=== PATIENT | female | born 1945 | race American Indian/Alaskan Native ===

== ENCOUNTER 2016-11-28 01:48 | Emergency (ER) | payer MEDICARE, OTHER ==
[2016-11-28 01:56] VITALS: BMI 29.8
[2016-11-28 02:11] VITALS: RESP 18; TEMP 98; O2SAT 99
--- NOTE | 2016-11-28 02:16 | ED PDOC ---
Arrival/HPI - General Chief Complaint: Finger,Hand,&Wrist Time Seen by Provider: 11/28/16 02:16 Historian: Patient - History of Present Illness Narrative History of Present Illness (Text): 11/28/16 02:16 Stephanie Metz is a 71 year old female, whose past medical history includes hypertension and Gout, who presents to the Emergency department complaining of right wrist pain. Patient states she has been experiencing right wrist pain with occasional swelling to the area for the past week. Patient states she was seen by her PMD for similar complaints and had XR performed on , which were negative. Patient states since yesterday right wrist pain radiates up to her elbow. Patient states she has been taking Tylenol throughout the day with no relief. Patient denies any fever, chest pain, nausea, vomiting, diarrhea, back pain, neck pain, headache, dizziness, or any other complaints. PMD: Dr. Sin Time/Duration: 1 week Symptom Onset: Gradual Symptom Course: Unchanged Activities at Onset: Rest, Light Context: Home Past Medical History - Provider Review Nursing Documentation Reviewed: Yes - Tetanus Immunization Tetanus Immunization: Unknown - Cardiac Hx Hypertension: Yes - Pulmonary Hx Respiratory Disorders: No - Neurological HX Cerebrovascular Accident: Yes (2014 no deficit) - HEENT Hx HEENT Disorder: No - Renal Hx Renal Disorder: No - Endocrine/Metabolic Other/Comment: gout - Hematological/Oncological Hx Blood Disorders: No - Integumentary Hx Dermatological Disorder: No - Musculoskeletal/Rheumatological Hx Gout: Yes - Gastrointestinal Hx Gastrointestinal Disorders: No - Genitourinary/Gynecological Hx Genitourinary Disorders: No - Psychiatric Hx Psychophysiologic Disorder: No Hx Anxiety: Yes Hx Depression: No Hx Emotional Abuse: No Hx Physical Abuse: No Hx Substance Use: No - Surgical History Hx Hysterectomy: Yes (radical) Other/Comment: endometrial cancer - Suicidal Assessment Feels Threatened In Home Enviroment: No Family/Social History - Physician Review Nursing Documentation Reviewed: Yes Family/Social History: No Known Family HX Smoking Status: Never Smoked Hx Alcohol Use: Yes Frequency of alcohol use: Socially Hx Substance Use: No Hx Substance Use Treatment: No Allergies/Home Meds Allergies/Adverse Reactions: Allergies iodine Allergy (Verified 11/28/16 02:12) RASH shellfish derived Allergy (Verified 11/28/16 02:12) RASH Home Medications: Home Meds Medication Instructions Recorded Confirmed Atorvastatin Calcium [Lipitor] 20 mg PO DAILY 01/11/13 11/28/16 amLODIPine [Norvasc] 10 mg PO DAILY 08/04/16 11/28/16 Alprazolam [Xanax] 0.5 mg PO BID 11/28/16 11/28/16 Valsartan/Hydrochlorothiazide 1 tab PO DAILY 11/28/16 11/28/16 [Diovan Hct 160-25 mg Tablet] Review of Systems - Physician Review All systems were reviewed & negative as marked: Yes - Review of Systems Constitutional: Normal. absent: Fevers Eyes: Normal ENT: Normal Respiratory: Normal. absent: SOB, Cough Cardiovascular: Normal. absent: Chest Pain, Other Gastrointestinal: Normal. absent: Diarrhea, Nausea, Vomiting Genitourinary Female: Normal. absent: Dysuria, Frequency, Hematuria, Urine Output Changes Musculoskeletal: Arthralgias (+right wrist pain). absent: Back Pain, Neck Pain Skin: Normal. absent: Rash Neurological: Normal. absent: Headache, Dizziness Endocrine: Normal Hemo/Lymphatic: Normal Psychiatric: Normal Physical Exam Vital Signs Reviewed: Yes Vital Signs Temp Pulse Resp BP Pulse Ox 11/28/16 03:25 71 18 146/74 99 11/28/16 02:01 98.0 F 62 18 145/77 99 Temperature: Afebrile Blood Pressure: Normal Pulse: Regular Respiratory Rate: Normal Appearance: Positive for: Well-Appearing, Non-Toxic, Comfortable Pain Distress: None Mental Status: Positive for: Alert and Oriented X 3 - Systems Exam Head: Present: Atraumatic, Normocephalic Pupils: Present: PERRL Extroacular Muscles: Present: EOMI Conjunctiva: Present: Normal Mouth: Present: Moist Mucous Membranes Upper Extremity: Present: Normal ROM, NORMAL PULSES, Tenderness (Tenderness to right wrist), Neurovascularly Intact, Capillary Refill < 2s. No: Cyanosis, Edema, Swelling, Erythema, Temperature Abnormalties, Deformity Lower Extremity: Present: Normal Inspection. No: Edema Neurological: Present: GCS=15, CN II-XII Intact, Speech Normal Skin: Present: Warm, Dry, Normal Color. No: Rashes Psychiatric: Present: Alert, Oriented x 3, Normal Insight, Normal Concentration Medical Decision Making ED Course and Treatment: 11/28/16 02:16 Impression: 71 year old female complaining of right wrist pain. Differential Diagnosis include but are not limited to: Gout Plan: -- Morphine -- Reassess and disposition Progress Notes: 11/28/16 03:13 On re-evaluation, the patient feels better and is in no acute distress. I have discussed the results and plan with the patient, who expresses understanding. Patient in agreement with plan to discharged home. Patient is stable for discharge. Patient was instructed to follow up with physician/clinic in 1-2 days or return if symptoms worsen or new concerning symptoms arise. Re-evaluation Time: 03:14 Reassessment Condition: Re-examined, Improved - Medication Orders Current Medication Orders: Discontinued Medications Morphine Sulfate (Morphine) 2 mg SC STAT STA Stop: 11/28/16 02:23 Last Admin: 11/28/16 02:46 Dose: 2 mg - Scribe Statement The provider has reviewed the documentation as recorded by the Scribe Dana Webb All medical record entries made by the Scribe were at my direction and personally dictated by me. I have reviewed the chart and agree that the record accurately reflects my personal performance of the history, physical exam, medical decision making, and the department course for this patient. I have also personally directed, reviewed, and agree with the discharge instructions and disposition. Disposition/Present on Arrival - Present on Arrival Any Indicators Present on Arrival: No History of DVT/PE: No History of Uncontrolled Diabetes: No Urinary Catheter: No History of Decub. Ulcer: No History Surgical Site Infection Following: None - Disposition Have Diagnosis and Disposition been Completed?: Yes Diagnosis: Gout Disposition: HOME/ ROUTINE Disposition Time: 03:14 Condition: GOOD Discharge Instructions (ExitCare): Gout (ED) Prescriptions: Tramadol HCl [Ultram] 50 mg PO QID #12 tab Referrals: Vikas Sin MD [Primary Care Provider] - Follow up with primary
[2016-11-28] MEDS ORDERED: Morphine 2 mg/ml ISec SC STA (02:22)
[2016-11-28 03:26] VITALS: BP 146/74; PULSE 71
== END 2016-11-28 03:25 | disposition home or self-care (01) ==
LOC: ED 01:48
DX: M10.9 Gout, unspecified (principal); I10 Essential (primary) hypertension
CPT/HCPCS: 96372; 99283; J2270

== ENCOUNTER 2016-12-22 15:36 | Emergency (ER) | payer MEDICARE, OTHER ==
[2016-12-22 15:37] VITALS: BMI 29.8
[2016-12-22 15:56] VITALS: BP 104/67; PULSE 80; RESP 18; TEMP 97.8; O2SAT 98
--- NOTE | 2016-12-22 16:01 | ED PDOC ---
Arrival/HPI - General Time Seen by Provider: 12/22/16 15:50 Historian: Patient - History of Present Illness Narrative History of Present Illness (Text): 12/22/16 16:08 71yo female with PMhx of gotu, hypertension and hyperlipdemia present with c/o bilateral knee pain x days. Notes intermittent history of same pain in the past. States pain radiates from her knees to her lower foot. States she took her gout medication. Denies trauma, chest pain, SOb, recent travel, weakness, any other complaint. Past Medical History - Provider Review Nursing Documentation Reviewed: Yes - Tetanus Immunization Tetanus Immunization: Unknown - Cardiac Hx Hypertension: Yes - Pulmonary Hx Respiratory Disorders: No - Neurological HX Cerebrovascular Accident: Yes (2014 no deficit) - HEENT Hx HEENT Disorder: No - Renal Hx Renal Disorder: No - Endocrine/Metabolic Other/Comment: gout - Hematological/Oncological Hx Blood Disorders: No - Integumentary Hx Dermatological Disorder: No - Musculoskeletal/Rheumatological Hx Gout: Yes - Gastrointestinal Hx Gastrointestinal Disorders: No - Genitourinary/Gynecological Hx Genitourinary Disorders: No - Psychiatric Hx Psychophysiologic Disorder: No Hx Anxiety: Yes Hx Depression: No Hx Emotional Abuse: No Hx Physical Abuse: No Hx Substance Use: No - Surgical History Hx Hysterectomy: Yes (radical) Other/Comment: endometrial cancer - Suicidal Assessment Feels Threatened In Home Enviroment: No Family/Social History - Physician Review Nursing Documentation Reviewed: Yes Family/Social History: Unknown Family HX Smoking Status: Never Smoked Hx Alcohol Use: Yes Hx Substance Use: No Hx Substance Use Treatment: No Allergies/Home Meds Allergies/Adverse Reactions: Allergies iodine Allergy (Verified 12/22/16 15:57) RASH shellfish derived Allergy (Verified 12/22/16 15:57) RASH Home Medications: Home Meds Medication Instructions Recorded Confirmed Atorvastatin Calcium [Lipitor] 20 mg PO DAILY 01/11/13 11/28/16 amLODIPine [Norvasc] 10 mg PO DAILY 08/04/16 11/28/16 Alprazolam [Xanax] 0.5 mg PO BID 11/28/16 11/28/16 Valsartan/Hydrochlorothiazide 1 tab PO DAILY 11/28/16 11/28/16 [Diovan Hct 160-25 mg Tablet] Review of Systems - Physician Review All systems were reviewed & negative as marked: Yes - Review of Systems Constitutional: Normal Eyes: Normal ENT: Normal Respiratory: Normal Cardiovascular: Normal Gastrointestinal: Normal Genitourinary Female: Normal Musculoskeletal: Normal Skin: Normal Neurological: Normal Endocrine: Normal Hemo/Lymphatic: Normal Psychiatric: Normal Physical Exam Vital Signs Reviewed: Yes Vital Signs Temp Pulse Resp BP Pulse Ox 12/22/16 15:40 97.8 F 80 18 104/67 98 Temperature: Afebrile Blood Pressure: Normal Pulse: Regular Respiratory Rate: Normal Appearance: Positive for: Well-Appearing, Non-Toxic, Comfortable Pain Distress: None Mental Status: Positive for: Alert and Oriented X 3 - Systems Exam Head: Present: Atraumatic, Normocephalic Pupils: Present: PERRL Extroacular Muscles: Present: EOMI Conjunctiva: Present: Normal Mouth: Present: Moist Mucous Membranes Neck: Present: Normal Range of Motion Respiratory/Chest: Present: Clear to Auscultation, Good Air Exchange. No: Respiratory Distress, Accessory Muscle Use Cardiovascular: Present: Regular Rate and Rhythm, Normal S1, S2. No: Murmurs Abdomen: Present: Normal Bowel Sounds. No: Tenderness, Distention, Peritoneal Signs Back: Present: Normal Inspection Upper Extremity: Present: Normal Inspection. No: Cyanosis, Edema Lower Extremity: Present: CALF TENDERNESS (Right calf), NORMAL PULSES, Normal ROM, Tenderness (B/L knee), Neurovascularly Intact. No: Edema, Cyanosis, Swelling, Erythema, Deformity, Temperature Abnormalties Neurological: Present: GCS=15, CN II-XII Intact, Speech Normal Skin: Present: Warm, Dry, Normal Color. No: Rashes Psychiatric: Present: Alert, Oriented x 3, Normal Insight, Normal Concentration Medical Decision Making ED Course and Treatment: 12/22/16 17:11 Pt in ED for stated history. B/L knee xray - DJD. No acute finding PEr US verbal result from the tech - Doppler was negative for DVT b/l Result was DW the pt. she was referred to her PMD/Orthopedist. Isidro wrap applied. Advised TRT ED for any new or worsening symptoms - RAD Interpretation Radiology Orders: 12/22/16 16:01 KNEE W PATELLA BILAT 3 VIEW [RAD] Stat DUPLEX LOWER EXTRM VEIN BILAT [US] Stat - Medication Orders Current Medication Orders: Discontinued Medications Ketorolac Tromethamine (Toradol) 60 mg IM STAT STA Stop: 12/22/16 17:10 Disposition/Present on Arrival - Present on Arrival Any Indicators Present on Arrival: No History of DVT/PE: No History of Uncontrolled Diabetes: No Urinary Catheter: No History Surgical Site Infection Following: None - Disposition Have Diagnosis and Disposition been Completed?: Yes Diagnosis: Knee pain, bilateral Disposition: HOME/ ROUTINE Disposition Time: 17:15 Patient Plan: Discharge Condition: STABLE Discharge Instructions (ExitCare): Knee Pain (ED) Additional Instructions: Follow up with your Doctor/Orthopedist Return to ED for any new or worsening symptoms Prescriptions: traMADol [Ultram] 50 mg PO TID #12 tab Referrals: Vikas Sin MD [Primary Care Provider] - Follow up with primary Julito Petersen III, MD [Medical Doctor] - Follow up with primary
--- NOTE | 2016-12-22 18:48 | US ---
HISTORY: Leg pain and swelling. Evaluate for DVT PHYSICIAN(S): Avery De Leon MD. TECHNIQUE: Duplex sonography and color-flow Doppler with graded compression were used to evaluate the deep venous systems of both lower extremities. FINDINGS: The visualized deep venous systems of both lower extremities are sonographically normal and compressible. Normal wave forms and augmentation are seen. There is no sonographic evidence for deep venous thrombosis in the visualized segments of both lower extremities. IMPRESSION: No sonographic evidence for deep venous thrombosis in the visualized segments of both lower extremities.
--- NOTE | 2016-12-23 10:20 | RAD ---
PROCEDURE: Bilateral Knee Radiographs. HISTORY: b/l knee pain COMPARISON: None. FINDINGS: BONES: Right Knee: Normal. No fracture. Left Knee: Normal. No fracture. JOINTS: Right Knee: Very early tricompartmental osteoarthritis. Marginal osteophytes. Minimal joint space narrowing in the medial and lateral compartments. No articular erosion. Left knee: Very early tricompartmental osteoarthritis. Marginal osteophytes. Minimal joint space narrowing in the medial and lateral compartments. No articular erosion. SOFT TISSUES: Right Knee: Normal. Left Knee: Normal. JOINT EFFUSION: Right Knee: None. Left Knee: None. OTHER FINDINGS: None. 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
== END 2016-12-22 17:36 | disposition home or self-care (01) ==
LOC: ED 15:36
DX: M25.562 Pain in left knee (principal); M25.561 Pain in right knee
CPT/HCPCS: 73562; 93970; 96372; 99283; J1885

== ENCOUNTER 2017-09-12 20:24 | Observation (INO) | payer MEDICARE, OTHER ==
[2017-09-12 20:56] LABS: BASO # 0.01 K/mm3 (0.0-2.0); BASO % 0.1 % (0.0-3.0); EOS # 0.2 (0.0-0.7); EOS % 2.4 % (1.5-5.0); GRAN # 4.19 (1.4-6.5); GRAN % 55.9 % (50.0-68.0); HEMOGLOBIN 10.1 g/dL (12.0-16.0); LYMPH # 2.6 (1.2-3.4); LYMPH % 34.3 % (22.0-35.0); MEAN CORPUSCULAR HEMOGLOBIN 28.2 pg (25.0-35.0); MEAN CORPUSCULAR HGB CONC 32.1 g/dl (31.0-37.0); MEAN PLATELET VOLUME 12.1 fl (7.0-11.0); MONO # 0.6 (0.1-0.6); MONO % 7.3 % (1.0-6.0); RBC 3.58 10^6/uL (3.5-6.1); RED CELL DISTRIBUTION WIDTH 16.3 % (11.5-14.5); WHITE BLOOD COUNT 7.5 10^3/ul (4.5-11.0)
[2017-09-12 21:13] LABS: ALB/GLOB RATIO 1.3 (1.1-1.8); ALBUMIN 4.1 g/dL (3.0-4.8); ALT/SGPT 35 U/L (7-56); AST/SGOT 30 U/L (14-36); BLOOD UREA NITROGEN 44 mg/dL (7-21); CALCIUM 10.9 mg/dL (8.4-10.5); GFR AFRICAN-AMERICAN 31; GFR NON-AFRICAN AMERICAN 26
[2017-09-12 21:21] LABS: TROPONIN I < 0.01 ng/mL
--- NOTE | 2017-09-12 22:33 | ED PDOC ---
Arrival/HPI - General Chief Complaint: Chest Pain Time Seen by Provider: 09/12/17 20:28 Historian: Patient - History of Present Illness Narrative History of Present Illness (Text): 09/12/17 22:30 Stephanie Metz is a 72 year old female, whose past medical history includes GOTU, hypertension, and hyperlipidemia, presents to the emergency department complaining of chest pain radiating to the left arm for a couple days. Patient also notes numbness in the left hand. Patient states she want to get checked out. Patient denies any fever, chills, shortness of breath, nausea, vomiting, diarrhea, back pain, neck pain, headache, dizziness or any other complaints. Time/Duration: < week Symptom Onset: Gradual Symptom Course: Unchanged Activities at Onset: Light Context: Home Past Medical History - Provider Review Nursing Documentation Reviewed: Yes - Infectious Disease Hx of Infectious Diseases: None - Tetanus Immunization Tetanus Immunization: Unknown - Cardiac Hx Cardiac Disorders: Yes Hx Hypertension: Yes - Pulmonary Hx Respiratory Disorders: No - Neurological Hx Neurological Disorder: Yes HX Cerebrovascular Accident: Yes (2014 no deficit) - HEENT Hx HEENT Disorder: No - Renal Hx Renal Disorder: Yes Other/Comment: chronic kidney disease - Endocrine/Metabolic Hx Endocrine Disorders: No - Hematological/Oncological Hx Blood Disorders: No - Integumentary Hx Dermatological Disorder: No - Musculoskeletal/Rheumatological Hx Musculoskeletal Disorders: Yes Hx Gout: Yes - Gastrointestinal Hx Gastrointestinal Disorders: Yes Hx Pancreatitis: Yes (2011) - Genitourinary/Gynecological Hx Genitourinary Disorders: Yes Other/Comment: endometrial cancer - Psychiatric Hx Psychophysiologic Disorder: Yes Hx Anxiety: Yes Hx Depression: No Hx Emotional Abuse: No Hx Physical Abuse: No Hx Substance Use: No - Surgical History Hx Hysterectomy: Yes (radical) Other/Comment: endometrial cancer - Anesthesia Hx Anesthesia: Yes Hx Anesthesia Reactions: No - Suicidal Assessment Feels Threatened In Home Enviroment: No Family/Social History - Physician Review Nursing Documentation Reviewed: Yes Family/Social History: Unknown Family HX Smoking Status: Never Smoked Hx Alcohol Use: Yes Frequency of alcohol use: Socially Hx Substance Use: No Hx Substance Use Treatment: No Allergies/Home Meds Allergies/Adverse Reactions: Allergies iodine Allergy (Verified 12/22/16 15:57) RASH shellfish derived Allergy (Verified 12/22/16 15:57) RASH Home Medications: Home Meds Medication Instructions Recorded Confirmed Atorvastatin Calcium [Lipitor] 20 mg PO DAILY 01/11/13 09/12/17 amLODIPine [Norvasc] 10 mg PO DAILY 08/04/16 09/12/17 Alprazolam [Xanax] 0.5 mg PO BID 11/28/16 09/12/17 Valsartan/Hydrochlorothiazide 1 tab PO DAILY 11/28/16 09/12/17 [Diovan Hct 160-25 mg Tablet] Review of Systems - Physician Review All systems were reviewed & negative as marked: Yes - Review of Systems Constitutional: Normal Eyes: Normal ENT: Normal Respiratory: Normal. absent: SOB, Cough Cardiovascular: Chest Pain. absent: Palpitations Gastrointestinal: Normal. absent: Abdominal Pain, Diarrhea, Nausea, Vomiting Genitourinary Female: Normal. absent: Dysuria, Frequency, Hematuria, Urine Output Changes Musculoskeletal: Other (left arm pain, numbness to left hand). absent: Back Pain, Neck Pain Skin: Normal. absent: Rash Neurological: Normal. absent: Headache, Dizziness Endocrine: Normal Hemo/Lymphatic: Normal Psychiatric: Normal Physical Exam Vital Signs Reviewed: Yes Vital Signs Temp Pulse Resp BP Pulse Ox 09/13/17 00:47 98.6 F 85 20 144/96 H 09/13/17 00:00 84 20 147/80 98 09/12/17 22:55 79 18 133/76 97 09/12/17 20:28 98.6 F 88 17 136/74 95 Temperature: Afebrile Blood Pressure: Normal Pulse: Regular Respiratory Rate: Normal Appearance: Positive for: Well-Appearing, Non-Toxic, Comfortable Pain Distress: None Mental Status: Positive for: Alert and Oriented X 3 - Systems Exam Head: Present: Atraumatic, Normocephalic Pupils: Present: PERRL Extroacular Muscles: Present: EOMI Conjunctiva: Present: Normal Mouth: Present: Moist Mucous Membranes Neck: Present: Normal Range of Motion Respiratory/Chest: Present: Clear to Auscultation, Good Air Exchange. No: Respiratory Distress, Accessory Muscle Use Cardiovascular: Present: Regular Rate and Rhythm, Normal S1, S2. No: Murmurs Abdomen: Present: Normal Bowel Sounds. No: Tenderness, Distention, Peritoneal Signs Back: Present: Normal Inspection Upper Extremity: Present: Normal Inspection. No: Cyanosis, Edema Lower Extremity: Present: Normal Inspection. No: Edema Neurological: Present: GCS=15, CN II-XII Intact, Speech Normal Skin: Present: Warm, Dry, Normal Color. No: Rashes Psychiatric: Present: Alert, Oriented x 3, Normal Insight, Normal Concentration Medical Decision Making ED Course and Treatment: 09/12/17 22:33 Impression: 72 year old female presents to the emergency department complaining of chest pain radiating to the left arm with numbness to the left hand. Plan: -- EKG -- Chest X-ray -- Labs -- Urinalysis -- Magnesium -- Cardiac Enzymes -- Lipid Panel -- Ecotrin -- Lipitor -- Norvasc -- Protonix -- Toprol -- Tylenol -- Ultrem -- Zestril -- Zofran -- Reassess and disposition Progress Notes: case d/w dr laguna will tele obs for cp 09/13/17 03:35 - Lab Interpretations Lab Results: 09/12/17 20:40 09/12/17 20:40 Lab Results 09/12/17 20:40: Sodium 140, Potassium 4.1, Chloride 103, Carbon Dioxide 24, Anion Gap 17, BUN 44 H, Creatinine 1.9 H, Est GFR ( Amer) 31, Est GFR ( Non-Af Amer) 26, Random Glucose 100, Calcium 10.9 H, Magnesium 2.3 H, Total Bilirubin 0.3, AST 30, ALT 35, Alkaline Phosphatase 66, Lactate Dehydrogenase 378, Total Creatine Kinase 44, Troponin I < 0.01, Total Protein 7.3, Albumin 4.1 , Globulin 3.2, Albumin/Globulin Ratio 1.3 09/12/17 20:40: WBC 7.5, RBC 3.58, Hgb 10.1 L, Hct 31.5 L, MCV 88.0, MCH 28.2, MCHC 32.1, RDW 16.3 H, Plt Count 230, MPV 12.1 H, Gran % 55.9, Lymph % (Auto) 34.3, [place] % (Auto) 7.3 H, Eos % (Auto) 2.4, Baso % (Auto) 0.1, Gran # 4.19, Lymph # (Auto) 2.6, [place] # (Auto) 0.6, Eos # (Auto) 0.2, Baso # (Auto) 0.01 - RAD Interpretation Radiology Orders: 09/12/17 20:46 CHEST PORTABLE [RAD] Stat - Medication Orders Current Medication Orders: Acetaminophen (Tylenol 325mg Tab) 650 mg PO Q6H PRN PRN Reason: Fever >100.4 F Alprazolam (Xanax) 0.5 mg PO BID LUIS A PRN Reason: Protocol Amlodipine Besylate (Norvasc) 10 mg PO DAILY LUIS A Aspirin (Ecotrin) 81 mg PO DAILY LUIS A Atorvastatin Calcium (Lipitor) 20 mg PO DIN LUIS A Lisinopril (Zestril) 10 mg PO DAILY LUIS A Metoprolol Succinate (Toprol Xl) 25 mg PO BRK LUIS A Ondansetron HCl (Zofran Inj) 4 mg IVP Q6H PRN PRN Reason: Nausea/Vomiting Pantoprazole Sodium (Protonix Ec Tab) 40 mg PO 0630 LUIS A Tramadol HCl (Ultram) 50 mg PO TID LUIS A - Scribe Statement The provider has reviewed the documentation as recorded by the Scribe Documented by [Scribe~Name] acting as a scribe for Ady King MD. Disposition/Present on Arrival - Present on Arrival Any Indicators Present on Arrival: No History of DVT/PE: No History of Uncontrolled Diabetes: No Urinary Catheter: No History of Decub. Ulcer: No History Surgical Site Infection Following: None - Disposition Have Diagnosis and Disposition been Completed?: Yes Diagnosis: Chest pain Disposition: HOSPITALIZED Disposition Time: 22:00 Condition: GOOD
[2017-09-13 01:35] LABS: HDL CHOLESTEROL 55 mg/dL (29-60)
[2017-09-13 01:46] LABS: LDL CHOLESTEROL 68 mg/dL (0-129)
[2017-09-13 01:47] LABS: TROPONIN I < 0.01 ng/mL
[2017-09-13 02:05] VITALS: BMI 31.7
[2017-09-13] MEDS ORDERED: Pantoprazole 40 mg EC Tab PO SCH (06:30)
[2017-09-13 06:50] LABS: ALB/GLOB RATIO 1.2 (1.1-1.8); ALBUMIN 3.8 g/dL (3.0-4.8); CALCIUM 10.8 mg/dL (8.4-10.5)
[2017-09-13 07:02] LABS: FREE T4 0.91 ng/dL (0.78-2.19)
--- NOTE | 2017-09-13 07:20 | HP ---
HISTORY OF PRESENT ILLNESS: Patient is a 72-year-old female, who came to emergency room because of left-sided chest pain radiating to the left arm, has been going on for a few days, but got worse today, complaining of numbness in the left lower arm and the hand. There is no history of fever or chills. No nausea, vomiting or diarrhea. No cough, no congestion, no shortness of breath. No hemoptysis, no hematemesis. PAST MEDICAL HISTORY: Significant for: 1. Hypertension. 2. Hyperlipidemia. 3. History of gout. 4. Pancreatitis. 5. History of anxiety disorder. PAST SURGICAL HISTORY: Significant for hysterectomy and endometrial cancer. ALLERGIES: SHE IS ALLERGIC TO IODINE AND SHELLFISH. MEDICATIONS AT HOME: She is on tramadol 50 mg three times a day, amlodipine 10 mg daily, valsartan 160/25 daily, atorvastatin 20 mg daily, Xanax 0.5 b.i.d. SOCIAL HISTORY: Denies smoking and drinking, only socially drinks. REVIEW OF SYSTEMS: Significant for left-sided chest pain with some generalized weakness. PHYSICAL EXAMINATION: GENERAL: She is awake, alert, oriented and communicative. VITAL SIGNS: She is afebrile, pulse , respirations 17, blood pressure 133/76. LUNGS: Bilateral good airflow. No rhonchi or crackles. HEART: S1 and S2 audible. No murmur. ABDOMEN: Soft, nontender. No rebound. No guarding. NEUROLOGICAL: The patient is awake, alert, oriented, and communicative. LABORATORY EXAM: WBC is 7.5, hemoglobin 10, hematocrit 31, platelet of 230. Chemistry: Sodium 140, potassium 4.1, chloride 103, CO2 24, BUN 44, creatinine 1.9. Blood sugar of 100, calcium 10.9, magnesium 2.3. LFTs are within normal limits. Troponin is negative. X-ray of the chest is unremarkable. ASSESSMENT: 1. Chest pain, rule out coronary artery disease. The patient had a stress test done in 08/2016. 2. Hypertension. 3. Hyperlipidemia. 4. Chronic back pain. 5. Anxiety disorder. PLAN: We will place the patient in observation and follow up cardiac enzymes. Renew her usual medications. Follow up troponin. Cardiology consult by Dr. Payne has been requested. Korin Barkley MD [facility] # [id number]
[2017-09-13] MEDS ORDERED: Metoprolol Succinate 25 mg XL Tab PO SCH (08:00)
[2017-09-13 08:17] VITALS: O2SAT 97
--- NOTE | 2017-09-13 08:39 | RAD ---
HISTORY: cp COMPARISON: 03/04/2015 FINDINGS: LUNGS: No active pulmonary disease. PLEURA: No significant pleural effusion identified, no pneumothorax apparent. CARDIOVASCULAR: Mild cardiomegaly OSSEOUS STRUCTURES: No significant abnormalities. VISUALIZED UPPER ABDOMEN: Normal. OTHER FINDINGS: None. IMPRESSION: No active disease.
[2017-09-13 09:30] LABS: AMYLASE 86 U/L (35-125); LIPASE 67 U/L (23-300)
[2017-09-13 11:56] VITALS: BP 146/87; PULSE 74; RESP 18; TEMP 98
--- NOTE | 2017-09-13 15:47 | CARD ---
APPROVED REPORT EKG Measurement Heart [id number] <Conclusion> Normal sinus rhythm Possible Left atrial enlargement NSSTW changes
--- NOTE | 2017-09-13 18:08 | CON ---
DATE: 09/13/2017 CARDIOLOGY CONSULTATION HISTORY OF PRESENT ILLNESS: The patient is a 72-year-old woman who presents with epigastric discomfort. PAST MEDICAL HISTORY: Includes hypertension and hypercholesterolemia. Because of similar symptoms in the past, the patient underwent a stress test last month. Her stress test reveals good LV function with no ischemia noted. She denies chest pain or shortness of breath today. SOCIAL HISTORY: The patient does not smoke. REVIEW OF SYSTEMS: Fourteen-point review of systems is reviewed in detail. No cardiac symptomatology is noted. PHYSICAL EXAMINATION: VITAL SIGNS: Blood pressure is 134/81, heart rate is in the 80s. NECK: Negative JVD. LUNGS: Without rales. HEART: Reveal S1, S2. EXTREMITIES: Without edema. EKG is unremarkable. LABORATORY DATA: Reveals BUN and creatinine is 42 and 1.5. The troponins are negative x2. Hemoglobin is 10.1. IMPRESSION: 1. Atypical chest pain. 2. No evidence for acute coronary syndrome. 3. Recent normal stress test. 4. Hypertension. 5. Hypercholesterolemia. 6. Anemia. Given these findings, there is no evidence for acute coronary syndrome. Her symptoms are atypical. PLAN: The patient has been given a trial of Protonix. We will discontinue telemetry. No further cardiac workup is necessary. Avery Payne MD
--- NOTE | 2017-09-14 06:37 | DS ---
HISTORY OF PRESENT ILLNESS: Patient is a 72-year-old black female who came with chest pain radiating to left shoulder and left arm. Patient was placed on observation, was given Protonix. animal husbandry professor was placed. Her overnight was unremarkable. No arrhythmia noted. PHYSICAL EXAMINATION: GENERAL: Today, patient looks comfortable. No chest pain, complaining of left shoulder pain, but she does admit carrying heavy grocery last few days in the left hand. Since then, her left shoulder has been hurting. PHYSICAL EXAMINATION: GENERAL: She is awake, alert, oriented, communicative VITAL SIGNS: She is afebrile. Pulse 74, respirations 18, blood pressure 146/67. LUNGS: Bilateral good air flow. No rhonchi or crackle. HEART: S1 and S2 audible. No murmur. ABDOMEN: Soft, obese, nontender, no rebound, no guarding. NEUROLOGIC: Patient is awake, alert, oriented, communicative, ambulatory. LABORATORY EXAMINATION: Sodium 142, potassium 4.0, chloride 105, CO2 27, BUN 42, creatinine 1.5, blood sugar 103, calcium 10.8. TSH 2.12. ASSESSMENT: 1. Non-cardiac chest pain. 2. Left shoulder sprain. 3. History of hypertension. 4. Hyperlipidemia. 5. Peptic ulcer disease. 6. Anxiety disorder. PLAN: Patient is clinically stable, cleared by inspector plug seam. She will follow up with Dr. Payne as outpatient. She is given prescription of Protonix. She will resume her medication as prior to admission that include Protonix 40 daily, 0.5 twice a day as needed, atorvastatin 20 mg daily, tramadol 50 mg three times a day, amlodipine 10 mg daily, valsartan 160/25 daily. She will follow with her PMD and Dr. Payne as outpatient. Korin Barkley MD
== END 2017-09-13 14:16 | disposition home or self-care (01) ==
LOC: ED 20:24 → ERH 23:59 → 2RNO 09-13 01:31
PROVIDERS: ADMIT Internal Medicine; ATTEND Internal Medicine
DX: R07.89 Other chest pain (principal); S43.402A Unspecified sprain of left shoulder joint, initial encounter; I12.9 Hypertensive chronic kidney disease with stage 1 through stage 4 chronic kidney disease, or unspecified chronic kidney disease; E78.5 Hyperlipidemia, unspecified; K27.9 Peptic ulcer, site unspecified, unspecified as acute or chronic, without hemorrhage or perforation; F41.9 Anxiety disorder, unspecified; E78.00 Pure hypercholesterolemia, unspecified; D64.9 Anemia, unspecified; G89.29 Other chronic pain; N18.9 Chronic kidney disease, unspecified; Z79.899 Other long term (current) drug therapy; Z85.42 Personal history of malignant neoplasm of other parts of uterus; Z86.73 Personal history of transient ischemic attack (TIA), and cerebral infarction without residual deficits; Z90.710 Acquired absence of both cervix and uterus; Z87.19 Personal history of other diseases of the digestive system; Z88.8 Allergy status to other drugs, medicaments and biological substances; Z91.013 Allergy to seafood; R40.2412 Glasgow coma scale score 13-15, at arrival to emergency department; M54.9 Dorsalgia, unspecified
CPT/HCPCS: 71045; 80053; 80061; 82150; 82550; 83615; 83690; 83735; 84439; 84443; 84484; 85025; 93005; G0378

== ENCOUNTER 2018-07-03 01:17 | Inpatient (IN) | payer MEDICARE, OTHER ==
[2018-07-03] MEDS ORDERED: Morphine 2 mg/ml ISec IVP STA ×2 (01:40→04:50)
[2018-07-03] MEDS ORDERED: Sodium Chloride 0.9% 1,000 ML IV STA (01:40)
--- NOTE | 2018-07-03 01:42 | ED PDOC ---
Arrival/HPI - General Chief Complaint: Abdominal Pain Time Seen by Provider: 07/03/18 01:19 Historian: Patient - History of Present Illness Narrative History of Present Illness (Text): 07/03/18 01:39 72 year old female, whose past medical history includes Gout hypertension, pancreatitis, level III kidney disease, hx of endometrial cancer, and hyperlipidemia, presents to the emergency department complaining of progressively worsening upper abdominal pain that began this morning associated with nausea and one episode of vomiting. Patient reports she's took 3 pepto bismol and 2 ibuprofen with no relief. Patient is an occasional drinker. Patient denies any fever, chills, chest pain, shortness of breath, diarrhea, urinary symptoms, back pain, neck pain, headache, dizziness, or any other complaints. PMD: Dr. Ireland Past Medical History - Provider Review Nursing Documentation Reviewed: Yes - Infectious Disease Hx of Infectious Diseases: None - Tetanus Immunization Tetanus Immunization: Unknown - Cardiac Hx Cardiac Disorders: Yes Hx Hypertension: Yes - Pulmonary Hx Respiratory Disorders: No - Neurological Hx Neurological Disorder: Yes HX Cerebrovascular Accident: Yes (2014 no deficit) - HEENT Hx HEENT Disorder: No - Renal Hx Renal Disorder: Yes Other/Comment: chronic kidney disease - Endocrine/Metabolic Hx Endocrine Disorders: No - Hematological/Oncological Hx Blood Disorders: No - Integumentary Hx Dermatological Disorder: No - Musculoskeletal/Rheumatological Hx Musculoskeletal Disorders: Yes Hx Gout: Yes - Gastrointestinal Hx Gastrointestinal Disorders: Yes Hx Pancreatitis: Yes (2011) - Genitourinary/Gynecological Hx Genitourinary Disorders: Yes Other/Comment: endometrial cancer - Psychiatric Hx Psychophysiologic Disorder: Yes Hx Anxiety: Yes Hx Depression: No Hx Emotional Abuse: No Hx Physical Abuse: No Hx Substance Use: No - Surgical History Hx Hysterectomy: Yes (radical) Other/Comment: endometrial cancer - Anesthesia Hx Anesthesia: Yes Hx Anesthesia Reactions: No - Suicidal Assessment Feels Threatened In Home Enviroment: No Family/Social History - Physician Review Nursing Documentation Reviewed: Yes Family/Social History: No Known Family HX Smoking Status: Never Smoked Hx Alcohol Use: Yes Hx Substance Use: No Hx Substance Use Treatment: No Allergies/Home Meds Allergies/Adverse Reactions: Allergies iodine Allergy (Verified 12/22/16 15:57) RASH shellfish derived Allergy (Verified 12/22/16 15:57) RASH Home Medications: Home Meds Medication Instructions Recorded Confirmed Atorvastatin Calcium [Lipitor] 20 mg PO DAILY 01/11/13 07/03/18 amLODIPine [Norvasc] 10 mg PO DAILY 08/04/16 07/03/18 Alprazolam [Xanax] 0.5 mg PO BID 11/28/16 07/03/18 Valsartan/Hydrochlorothiazide 1 tab PO DAILY 11/28/16 07/03/18 [Diovan Hct 160-25 mg Tablet] Pantoprazole Sodium [Protonix] 40 mg PO DAILY 09/13/17 07/03/18 Allopurinol [Zyloprim] 300 mg PO DAILY 07/03/18 07/03/18 Aspirin [Aspirin Chewable] 81 mg PO DAILY 07/03/18 07/03/18 Atenolol [Tenormin] 50 mg PO DAILY 07/03/18 07/03/18 Review of Systems - Physician Review All systems were reviewed & negative as marked: Yes - Review of Systems Constitutional: absent: Fevers, Other (Chills) Respiratory: absent: SOB Gastrointestinal: Abdominal Pain, Nausea, Vomiting. absent: Diarrhea Genitourinary Female: absent: Dysuria, Frequency, Hematuria Musculoskeletal: absent: Back Pain, Neck Pain Neurological: absent: Headache, Dizziness Physical Exam Vital Signs Reviewed: Yes Appearance: Positive for: Well-Appearing, Non-Toxic, Comfortable Pain Distress: None Mental Status: Positive for: Alert and Oriented X 3 - Systems Exam Head: Present: Atraumatic, Normocephalic Pupils: Present: PERRL Extroacular Muscles: Present: EOMI Conjunctiva: Present: Normal Mouth: Present: Moist Mucous Membranes Neck: Present: Normal Range of Motion Respiratory/Chest: Present: Clear to Auscultation, Good Air Exchange. No: Respiratory Distress, Accessory Muscle Use Cardiovascular: Present: Regular Rate and Rhythm, Normal S1, S2. No: Murmurs Abdomen: Present: Tenderness (Palpable tenderness upper abdomen). No: Distention, Peritoneal Signs Back: Present: Normal Inspection Upper Extremity: Present: Normal Inspection. No: Cyanosis, Edema Lower Extremity: Present: Normal Inspection. No: Edema Neurological: Present: GCS=15, CN II-XII Intact, Speech Normal Skin: Present: Warm, Dry, Normal Color. No: Rashes Psychiatric: Present: Alert, Oriented x 3, Normal Insight, Normal Concentration Medical Decision Making ED Course and Treatment: 07/03/18 01:39 Impression: 72 year old female presents complaining of upper abdominal pain associated with nausea and one episode of vomiting that began in t he morning. Plan: -- EKG -- Labs -- Chest X-ray -- Gallbladder & Pancreas US -- Reassess and disposition Prior Visits: Notes and results from previous visits were reviewed. Progress Notes: 07/03/18 01:06 EKG shows NSR at 72 BPM with non-specific ST/T changes. Interpreted by me. 07/03/18 02:23 CXR Impression: As read by me, no acute process. EXAM: US Abdomen, Right Upper Quadrant. Electronically signed on Jul 03, 2018 4:00:52 AM EST by: Nathan Carpenter M.D. IMPRESSION: Several right renal cysts. Unremarkable right upper quadrant ultrasound otherwise. 07/03/18 04:[address] Garcia covering Dr. Barkley who is aware and agrees with the plan. Accepts patient into Dr. Barkley's service. - Lab Interpretations I have reviewed the lab results: Yes - RAD Interpretation Radiology Orders: 07/03/18 01:38 CHEST PORTABLE [RAD] Stat Dough Scaler And Mixer: ED Physician - EKG Interpretation Interpreted by ED Physician: Yes Type: 12 lead EKG - Scribe Statement The provider has reviewed the documentation as recorded by the Ettaibe Miki Lozada Provider Scribe Attestation: All medical record entries made by the Scribe were at my direction and personally dictated by me. I have reviewed the chart and agree that the record accurately reflects my personal performance of the history, physical exam, medical decision making, and the department course for this patient. I have also personally directed, reviewed, and agree with the discharge instructions and disposition. Disposition/Present on Arrival - Present on Arrival Any Indicators Present on Arrival: No History of DVT/PE: No History of Uncontrolled Diabetes: No Urinary Catheter: No History of Decub. Ulcer: No History Surgical Site Infection Following: None - Disposition Have Diagnosis and Disposition been Completed?: Yes Diagnosis: Acute pancreatitis Disposition: HOSPITALIZED Disposition Time: 04:20 Patient Plan: Admission Condition: STABLE Referrals: Doretha Ireland MD [Primary Care Provider] - Follow up with primary Forms: [employer] ([place]ien)
[2018-07-03 02:28] LABS: ALB/GLOB RATIO 1.4 (1.1-1.8); ALBUMIN 4.1 g/dL (3.0-4.8); CALCIUM 10.2 mg/dL (8.4-10.5)
[2018-07-03 02:36] LABS: MEAN CELL VOLUME 90.1 fl (80.0-105.0); MEAN CORPUSCULAR HEMOGLOBIN 28.6 pg (25.0-35.0); MEAN CORPUSCULAR HGB CONC 31.7 g/dl (31.0-37.0); MEAN PLATELET VOLUME 11.7 fl (7.0-11.0); RBC 3.85 10^6/uL (3.5-6.1); RED CELL DISTRIBUTION WIDTH 16.6 % (11.5-14.5); WHITE BLOOD COUNT 8.1 10^3/uL (4.5-11.0)
[2018-07-03] MEDS ORDERED: Dextrose 5%/0.45% NS 1,000 ML IV SCH (04:30)
[2018-07-03 05:50] VITALS: BMI 33.5
--- NOTE | 2018-07-03 07:37 | CP.PCM.CON ---
<Juliano Angel - Last Filed: 07/03/18 17:37> History of Present Illness - History of Present Illness History of Present Illness: Juliano Angel DO, PGY1. GI consult note for Dr Muna Hernandez: abdominal pain 72 y/o female with PMH of pancreatitis, HTN, HLD, CVA, gout, CKD, endometrial cancer s/o total hysterectomy with BSO admitted to [facility] for left sided abdominal pain 10/10, sharp, constant, radiates to the back, no alleviating or worsening factors. Patient states that the pain has been for the past 2 weeks but was 5/6/10 and intermittent, spontaneously resolve but yesterday was progressive with no resolution. Pain is associted with one episode of nausea, NBNB vomiting. Patient denied any diarrhea, blood per rectum, black stool, hematemesis, hemoptysis. She states that she was diagnosed of alcoholic pancreatitis in 2008 and she still drinks 2 glasses of wine daily at night for years with increased consumption during holidays. She had milder symptoms during Thanks[place] after d rinking alcohol but resolved spontaneously. Her last hospital admission admission related to pancreatitis was one year ago. She admits to taking NSAID (800 mg Ibuprofen) for her tooth ache. Patient had EGD/CSPY 3 years ago for gastris/colonic polyps surveillance respectively. Patient denied CP, SOB, palpitations, headache, dizzines, fever, chills, leg edema. ROS reviewed as above PMH: pancreatitis, GERD, HTN, HLD, gout, CKD, endometrial cancer, CVA BSH: total hysterectomy with BSO Meds: as per EMR All: iodine SH: drinks 2 glasses of wine daily, no smoking or drug use FH: brother had gastric cancer Endo: last EGD/CSPY in 2017 for gastris/colonic polyps surveillance respectively Past Patient History - Infectious Disease Hx of Infectious Diseases: None - Tetanus Immunizations Tetanus Immunization: Unknown - Past Social History Smoking Status: Never Smoked - CARDIAC Hx Hypercholesterolemia: Yes Hx Hypertension: Yes - PULMONARY Hx Respiratory Disorders: No - NEUROLOGICAL HX Cerebrovascular Accident: Yes (2015, NO DEFICITS) - HEENT Hx HEENT Problems: No - RENAL Hx Chronic Kidney Disease: Yes Other/Comment: chronic kidney disease - ENDOCRINE/METABOLIC Hx Diabetes Mellitus Type 1: Yes (BORDERLINE, DIET CONTROLLED) - HEMATOLOGICAL/ONCOLOGICAL Hx Blood Disorders: No - INTEGUMENTARY Hx Dermatological Problems: No - MUSCULOSKELETAL/RHEUMATOLOGICAL Hx Falls: No - GASTROINTESTINAL Hx Gastroesophageal Reflux: Yes Hx Liver Failure: Yes (FATTY LIVER) Hx Pancreatitis: Yes - GENITOURINARY/GYNECOLOGICAL Hx Genitourinary Disorders: Yes Other/Comment: endometrial cancer - PSYCHIATRIC Hx Anxiety: Yes Hx Substance Use: No - SURGICAL HISTORY Hx Surgeries: Yes Hx Hysterectomy: Yes - ANESTHESIA Hx Anesthesia: Yes Hx Anesthesia Reactions: No Meds Allergies/Adverse Reactions: Allergies Allergy/AdvReac Type Severity Reaction Status Date / Time iodine Allergy RASH Verified 12/22/16 15:57 shellfish derived Allergy RASH Verified 12/22/16 15:57 - Medications Medications: Current Medications Dextrose/Sodium Chloride (Dextrose 5%/0.45% Ns 1000 Ml) 1,000 mls @ 100 mls/hr IV .Q10H LUIS A Last Admin: 07/03/18 04:35 Dose: 100 mls/hr Physical Exam - Constitutional Appears: Well, No Acute Distress - Head Exam Head Exam: ATRAUMATIC, NORMAL INSPECTION, NORMOCEPHALIC - Eye Exam Eye Exam: EOMI, Normal appearance, PERRL Pupil Exam: NORMAL ACCOMODATION, PERRL - ENT Exam ENT Exam: Mucous Membranes Dry - Neck Exam Neck exam: Positive for: Normal Inspection - Respiratory Exam Respiratory Exam: Clear to Auscultation Bilateral, NORMAL BREATHING PATTERN - Cardiovascular Exam Cardiovascular Exam: REGULAR RHYTHM, +S1, +S2. absent: Gallop, Rubs - GI/Abdominal Exam GI & Abdominal Exam: Hyperactive Bowel Sounds, Normal Bowel Sounds, Soft, Tenderness. absent: Organomegaly, Pulsatile Mass, Rebound Additional comments: TTP left mid abdomen - Extremities Exam Extremities exam: Positive for: normal inspection - Back Exam Back exam: NORMAL INSPECTION - Neurological Exam Neurological exam: Alert, CN II-XII Intact, Normal Gait, Oriented x3, Reflexes Normal - Psychiatric Exam Psychiatric exam: Normal Affect, Normal Mood - Skin Skin Exam: Dry, Intact, Normal Color, Warm Results - Vital Signs Recent Vital Signs: Last Vital Signs Temp 98.2 F 07/03/18 04:50 Pulse 85 07/03/18 04:50 Resp 20 07/03/18 05:30 BP 156/72 H 07/03/18 04:50 Pulse Ox 98 07/03/18 04:50 - Labs Result Diagrams: 07/03/18 02:12 07/03/18 02:12 Labs: Laboratory Results - last 24 hr 07/03/18 07/03/18 02:12 02:12 WBC 8.1 RBC 3.85 Hgb 11.0 L Hct 34.7 L MCV 90.1 MCH 28.6 MCHC 31.7 RDW 16.6 H Plt Count 256 MPV 11.7 H Sodium 138 Potassium 5.0 Chloride 105 Carbon Dioxide 26 Anion Gap 12 BUN 48 H Creatinine 1.8 H Est GFR ( Amer) 33 Est GFR (Non-Af Amer) 28 Random Glucose 142 H Calcium 10.2 Total Bilirubin 0.6 AST 24 ALT 23 Alkaline Phosphatase 68 Total Protein 7.0 Albumin 4.1 Globulin 2.9 Albumin/Globulin Ratio 1.4 Lipase 59587 H Assessment & Plan - Assessment and Plan (Free Text) Assessment: 72 y/o female with PMH of pancreatitis, HTN, HLD, CVA, gout, CKD, endometrial cancer s/o total hysterectomy with BSO admitted to [facility] for left sided abdominal pain, nausea, vomiting. She was found to have lipase of >78672 Plan: abdominal pain: -likely due to alcoholic pancreatitis based on clinical symptoms+serology -now patient is hemodynamically stable, afebrile, in NAD -lipase 10,186 -MRCP ordered -AST/ALT/ALP wnl -advance diet to clear liquid -pancreatic enzymes 10,000 U TID -conservative management IVF, pain control -continue PPI, zofran -outpatient EGD Case reviewed and plan discussed with attending Dr Muna Angel, DO <Giulia Toro V - Last Filed: 07/03/18 23:37> Meds - Medications Medications: Current Medications Acetaminophen (Tylenol 325mg Tab) 650 mg PO Q4H PRN PRN Reason: Pain, Mild (1-3) Allopurinol (Zyloprim) 300 mg PO DAILY [facility] Last Admin: 07/03/18 10:15 Dose: 300 mg Alprazolam (Xanax) 0.5 mg PO BID PRN; Protocol PRN Reason: Anxiety Last Admin: 07/03/18 08:45 Dose: 0.5 mg Amlodipine Besylate (Norvasc) 10 mg PO DAILY [facility] Last Admin: 07/03/18 10:15 Dose: 10 mg Amylase (Pancrease 57521 U-5000 [id number] U) 10,000 unit PO [facility] Last Admin: 07/03/18 18:32 Dose: 10,000 unit Aspirin (Aspirin Chewable) 81 mg PO DAILY [facility] Last Admin: 07/03/18 10:14 Dose: 81 mg Atenolol (Tenormin) 50 mg PO DAILY [facility] Last Admin: 07/03/18 10:15 Dose: 50 mg Atorvastatin Calcium (Lipitor) 20 mg PO DIN [facility] Last Admin: 07/03/18 17:48 Dose: 20 mg Hydrochlorothiazide (Hydrodiuril) 25 mg PO DAILY [facility] Last Admin: 07/03/18 10:14 Dose: 25 mg Dextrose/Sodium Chloride (Dextrose 5%/0.45% Ns 1000 Ml) 1,000 mls @ 100 mls/hr IV .Q10H [facility] Last Admin: 07/03/18 04:35 Dose: 100 mls/hr Sodium Chloride (Sodium Chloride 0.9%) 1,000 mls @ 100 mls/hr IV .Q10H [facility] Last Admin: 07/03/18 20:51 Dose: 100 mls/hr Losartan Potassium (Cozaar) 100 mg PO DAILY [facility] Last Admin: 07/03/18 10:14 Dose: Not Given Morphine Sulfate (Morphine) 2 mg IVP Q4H PRN PRN Reason: Pain, severe (8-10) Last Admin: 07/03/18 10:51 Dose: 2 mg Ondansetron HCl (Zofran Inj) 4 mg IVP Q4H PRN PRN Reason: Nausea/Vomiting Pantoprazole Sodium (Protonix Ec Tab) 40 mg PO DAILY [facility] Last Admin: 07/03/18 10:15 Dose: 40 mg Tramadol HCl (Ultram) 50 mg PO TID PRN PRN Reason: Pain, moderate (4-7) Last Admin: 07/03/18 08:45 Dose: 50 mg Results - Vital Signs Recent Vital Signs: Last Vital Signs Temp 98.2 F 07/03/18 16:15 Pulse 55 L 07/03/18 20:00 Resp 18 07/03/18 16:15 BP 129/72 07/03/18 20:00 Pulse Ox 95 07/03/18 16:15 - Labs Result Diagrams: 07/03/18 02:12 07/03/18 02:12 Labs: Laboratory Results - last 24 hr 07/03/18 07/03/18 02:12 02:12 WBC 8.1 RBC 3.85 Hgb 11.0 L Hct 34.7 L MCV 90.1 MCH 28.6 MCHC 31.7 RDW 16.6 H Plt Count 256 MPV 11.7 H Sodium 138 Potassium 5.0 Chloride 105 Carbon Dioxide 26 Anion Gap 12 BUN 48 H Creatinine 1.8 H Est GFR ( Amer) 33 Est GFR (Non-Af Amer) 28 Random Glucose 142 H Calcium 10.2 Total Bilirubin 0.6 AST 24 ALT 23 Alkaline Phosphatase 68 Total Protein 7.0 Albumin 4.1 Globulin 2.9 Albumin/Globulin Ratio 1.4 Lipase 77716 H Attending/Attestation - Attestation I have personally seen and examined this patient.: Yes I have fully participated in the care of the patient.: Yes I have reviewed all pertinent clinical information: Yes Notes (Text): ThisThis is an addendum to GI consult report dictated by the Experimental Assembler. The patient was seen and evaluated earlier. Medical records, lab studies, imagings were reviewed. Last 24 hours events reviewed. Agreed with the above treatment plan as outlined in Experimental Assembler 's notes with the addition of the following this patient with chronic hepatitis C as to increased intake of alcohol last few days Admitted with abdominal pain probably second to flare up of chronic pancreatitis Patient has been followed by agricultural equipment mechanic in [place] Would benefit from elective EGD EUS to further evaluate chronic pancreatitis Requested MRCP with MRI to further evaluate Will start the patient on clear liquid diet We will start pancreatic enzyme supplement 07/03/18 23:34
[2018-07-03] MEDS: Pantoprazole 40 mg EC Tab PO SCH (10:15)
--- NOTE | 2018-07-03 10:20 | RAD ---
Date of service: 07/03/2018 HISTORY: abdominal pain COMPARISON: Chest radiograph dated 09/12/2017 FINDINGS: LUNGS: No active pulmonary disease. PLEURA: No significant pleural effusion identified, no pneumothorax apparent. CARDIOVASCULAR: Aortic atherosclerotic calcifications. Cardiomediastinal silhouette stably enlarged. OSSEOUS STRUCTURES: Unchanged. VISUALIZED UPPER ABDOMEN: Normal. OTHER FINDINGS: None. IMPRESSION: No active disease.
--- NOTE | 2018-07-03 10:22 | US ---
Date of service: 07/03/2018 HISTORY: Pain COMPARISON: Abdominal ultrasound dated 10/19/2015. TECHNIQUE: Sonographic evaluation of the right upper quadrant of the abdomen. FINDINGS: LIVER: Measures 18.6 cm in length. Normal echogenicity of the liver parenchyma. No mass. No intrahepatic bile duct dilatation. GALLBLADDER: Unremarkable. No gallstones. COMMON BILE DUCT: Measures 5 mm. No stones. No dilatation. PANCREAS: Unremarkable as visualized. No mass. No ductal dilatation. RIGHT KIDNEY: Measures 10.6 x 5.3 x 5.6 cm in length. Upper pole cyst measuring 1.2 x 1.1 x 1.4 cm. Midpole cyst measuring 2.5 x 2.7 x 3.7 cm. Mid/lower pole cyst measuring 1.4 x 1.1 x 1.1 cm. Normal echogenicity. No calculus, mass, or hydronephrosis. AORTA: No aneurysmal dilatation. IVC: Unremarkable. OTHER FINDINGS: None . IMPRESSION: No evidence of cholelithiasis. Right renal cysts. Hepatomegaly.
--- NOTE | 2018-07-03 10:35 | CARD ---
APPROVED REPORT Date of service: 07/03/2018 EKG Measurement Heart [id number] ID [id number] <Conclusion> Normal sinus rhythm Minimal voltage criteria for LVH, may be normal variant Borderline ECG
[2018-07-03] MEDS ORDERED: Morphine 2 mg/ml ISec IVP PRN (10:39)
[2018-07-03] MEDS: Sodium Chloride 0.9% 1,000 ML IV SCH ×2 (10:52→20:51)
--- NOTE | 2018-07-03 14:33 | HP ---
DATE OF EXAM: 07/03/2018 CHIEF COMPLAINT AND HISTORY OF PRESENT ILLNESS: This is a 72-year-old female who is coming into the hospital complaining of abdominal pain. The patient says that she is feeling better. She says that she does drink wine at night. She does continue more alcohol during the holidays. The patient says she is feeling better this morning. Pain is better controlled. She did have an episode of nausea and vomiting yesterday. She says that she was last hospitalized for pancreatitis about 1 year ago. She does take NSAIDs at times. She had an EGD and colonoscopy about 3 years ago. She has no fevers, no chills, no nausea, no vomiting, no dysuria or frequency, no nocturia, no weakness in the arms and the legs. All other review of symptoms are within normal limits except what is mentioned. ALLERGIES: TO IODINE, SHELLFISH. PAST MEDICAL HISTORY: 1. GERD. 2. Hypertension. 3. Dyslipidemia. 4. Gout. 5. Endometrial cancer. 6. CVA. 7. Pancreatitis. PAST SURGICAL HISTORY: Hysterectomy. FAMILY HISTORY: Brother had gastric cancer. SOCIAL HISTORY: She drinks 2 glasses of wine daily. Does not smoke or use drugs. MEDICATIONS: She takes aspirin, atorvastatin, valsartan/hydrochlorothiazide, amlodipine, Protonix, atenolol, tramadol, Xanax and allopurinol. PHYSICAL EXAMINATION: VITAL SIGNS: She has a temperature of 98.1, pulse is 70, blood pressure is 180/94, respiration is 18, O2 saturation 96%. Height is 5 feet 4 inches, weight is 195 pounds, BMI is 33.5. GENERAL: The patient is lying in bed, comfortable, and in no acute distress. HEENT: Atraumatic and normocephalic. Anicteric sclerae. Moist mucosa. [place] conjunctivae. No oral lesions. NECK: No JVD, anterior and posterior adenopathy, thyromegaly, or bruits. CARDIOVASCULAR: S1 and S2 regular. No murmurs, rubs or gallops. LUNGS: Clear to auscultation bilaterally. No wheezes, rales, or rhonchi. ABDOMEN: Bowel sounds are positive. Soft, nontender and nondistended. No hepatosplenomegaly. No rebound and no guarding EXTREMITIES: No cyanosis, clubbing, or edema. NEUROLOGIC: No facial asymmetry. Tongue is midline. No uvula deviation. Power is 5/5 upper extremities and lower extremities. Sensation intact in upper extremities and lower extremities. PSYCHIATRIC: She is awake, alert and oriented x3. No anxiety or depression. She has normal affect. GENITOURINARY: No CVA tenderness. VASCULAR: 2+ pulses in the carotid pulses and pedal pulses. SKIN: No erythema or nodules. SPINE: Shows normal curvature. LABORATORY DATA: White count of 8.1, hemoglobin 11, platelet count is 256. Chemistry shows a sodium of 138, potassium is 5.0, creatinine is 1.8. The patient's baseline creatinine is about 1.9. Lipase is 10,186. The patient's EKG shows sinus rhythm at 72. No ST-T changes. QTC is 470. The patient's ultrasound of the gallbladder and pancreas done shows no evidence of cholelithiasis. There is right renal cyst, hepatosplenomegaly. ASSESSMENT: 1. Pancreatitis. 2. Hypertension. 3. Dyslipidemia. 4. Gout. 5. Chronic back pain. 6. Chronic kidney disease, stage III. 7. Hepatomegaly. 8. Right renal cyst. PLAN: The patient is currently comfortable. Her pancreatitis is improving clinically. She is going to continue with aspirin. She is on losartan for her hypertension. She is on hydrochlorothiazide for her blood pressure, this will be continued. She has uncontrolled blood pressure today. She is on Lipitor for dyslipidemia. The patient is going to be on morphine for pain. She is on Protonix daily. She was given IV fluids. I will continue her IV fluids. The patient was given Zofran, in case she has nausea, this will be continued. She is on tramadol for pain. The patient is currently n.p.o. I will get Dr. Toro to evaluate the patient. The patient has an alcohol level that is pending. The patient is going to have repeat blood work done tomorrow. She is currently comfortable. Gavino Garcia MD
[2018-07-03] MEDS: Amylase/Lipase/Protease 5,000 Units ECC PO SCH (18:32)
[2018-07-04 06:51] LABS: ALB/GLOB RATIO 1.2 (1.1-1.8); ALBUMIN 3.2 g/dL (3.0-4.8); CALCIUM 9.5 mg/dL (8.4-10.5)
[2018-07-04] MEDS: Sodium Chloride 0.9% 1,000 ML IV SCH ×2 (07:01→17:55)
[2018-07-04 07:07] LABS: HEMOGLOBIN 9.9 g/dL (12.0-16.0); MEAN CELL VOLUME 91.4 fl (80.0-105.0); MEAN CORPUSCULAR HEMOGLOBIN 28.4 pg (25.0-35.0); MEAN PLATELET VOLUME 11.2 fl (7.0-11.0); RBC 3.49 10^6/uL (3.5-6.1); RED CELL DISTRIBUTION WIDTH 16.9 % (11.5-14.5); WHITE BLOOD COUNT 9.5 10^3/uL (4.5-11.0)
[2018-07-04] MEDS: Amylase/Lipase/Protease 5,000 Units ECC PO SCH ×2 (08:46→17:19)
[2018-07-04] MEDS: Pantoprazole 40 mg EC Tab PO SCH (09:48)
--- NOTE | 2018-07-04 12:32 | MRI ---
Date of service: 07/04/2018 PROCEDURE: Magnetic Resonance Cholangiopancreatography HISTORY: COMPARISON: None available. TECHNIQUE: Multiplanar, multisequence MR images of the abdomen were obtained, including heavily T2 weighted MRCP images of the biliary system. Rotating maximum intensity projection images of the biliary system were generated. FINDINGS: MRCP: The common bile duct is of a normal caliber. No evidence of choledocholithiasis. No intrahepatic biliary ductal dilatation. LIVER: Unremarkable. GALLBLADDER: Unremarkable. SPLEEN: Unremarkable. PANCREAS: The pancreatic duct is mildly dilated measuring 3 mm. There is no evidence of edema or swelling to suggest acute pancreatitis ADRENALS: Unremarkable. KIDNEYS: Unremarkable. AORTA: No aneurysm. ASCITES: None. OTHER FINDINGS: None. IMPRESSION: The pancreatic duct is mildly dilated measuring 3 mm. There is no evidence of edema or swelling to suggest acute pancreatitis The common bile duct is of a normal caliber. No evidence of choledocholithiasis. No intrahepatic biliary ductal dilatation.
--- NOTE | 2018-07-04 12:59 | CP.PCM.PN ---
<Juliano Angel - Last Filed: 07/04/18 18:00> Subjective - Date & Time of Evaluation Date of Evaluation: 07/04/18 Time of Evaluation: 08:10 - Subjective Subjective: Juliano Angel DO, PGY1. GI progress note for Dr Toro Patient seen and examined at bedside. No acute events overnight. Epigastric pain improving. Tolerating her liquid diet. Denied vomiting, diarrhea, fever, chills, change in bowel movement Objective - Vital Signs/Intake and Output Vital Signs (last 24 hours): Temp Pulse Resp BP Pulse Ox 98.3 F 60 20 177/86 H 95 07/04/18 06:00 07/04/18 06:00 07/04/18 06:00 07/04/18 09:51 07/04/18 06:00 Intake and Output: 07/04/18 07/04/18 06:59 18:59 Intake Total 1320 Balance 1320 - Medications Medications: Current Medications Acetaminophen (Tylenol 325mg Tab) 650 mg PO Q4H PRN PRN Reason: Pain, Mild (1-3) Allopurinol (Zyloprim) 300 mg PO DAILY [facility] Last Admin: 07/04/18 09:52 Dose: 300 mg Alprazolam (Xanax) 0.5 mg PO BID PRN; Protocol PRN Reason: Anxiety Last Admin: 07/03/18 08:45 Dose: 0.5 mg Amlodipine Besylate (Norvasc) 10 mg PO DAILY [facility] Last Admin: 07/04/18 09:44 Dose: 10 mg Amylase (Pancrease 09609 U-5000 [id number] U) 10,000 unit PO WM [facility] Last Admin: 07/04/18 08:46 Dose: 10,000 unit Aspirin (Aspirin Chewable) 81 mg PO DAILY [facility] Last Admin: 07/04/18 09:42 Dose: 81 mg Atenolol (Tenormin) 50 mg PO DAILY [facility] Last Admin: 07/04/18 09:51 Dose: 50 mg Atorvastatin Calcium (Lipitor) 20 mg PO DIN [facility] Last Admin: 07/03/18 17:48 Dose: 20 mg Hydrochlorothiazide (Hydrodiuril) 25 mg PO DAILY [facility] Last Admin: 07/04/18 09:44 Dose: 25 mg Sodium Chloride (Sodium Chloride 0.9%) 1,000 mls @ 100 mls/hr IV .Q10H [facility] Last Admin: 07/04/18 07:01 Dose: 100 mls/hr Losartan Potassium (Cozaar) 100 mg PO DAILY [facility] Last Admin: 07/04/18 09:42 Dose: 100 mg Morphine Sulfate (Morphine) 2 mg IVP Q4H PRN PRN Reason: Pain, severe (8-10) Last Admin: 07/03/18 10:51 Dose: 2 mg Ondansetron HCl (Zofran Inj) 4 mg IVP Q4H PRN PRN Reason: Nausea/Vomiting Pantoprazole Sodium (Protonix Ec Tab) 40 mg PO DAILY [facility] Last Admin: 07/04/18 09:48 Dose: 40 mg Tramadol HCl (Ultram) 50 mg PO TID PRN PRN Reason: Pain, moderate (4-7) Last Admin: 07/03/18 08:45 Dose: 50 mg - Labs Labs: 07/04/18 06:15 07/04/18 06:15 - Constitutional Appears: Well, No Acute Distress - Head Exam Head Exam: ATRAUMATIC, NORMAL INSPECTION, NORMOCEPHALIC - Eye Exam Eye Exam: EOMI, Normal appearance, PERRL Pupil Exam: NORMAL ACCOMODATION, PERRL - ENT Exam ENT Exam: Mucous Membranes Moist, Normal Exam - Neck Exam Neck Exam: Full ROM, Normal Inspection. absent: Lymphadenopathy - Respiratory Exam Respiratory Exam: Clear to Ausculation Bilateral, NORMAL BREATHING PATTERN. absent: Rales, Rhonchi - Cardiovascular Exam Cardiovascular Exam: REGULAR RHYTHM, +S1, +S2. absent: Gallop, Rubs, Murmur - GI/Abdominal Exam GI & Abdominal Exam: Soft, Tenderness (mild epigastric tenderness), Normal Bowel Sounds. absent: Guarding, Rigid, Pulsatile Mass, Rebound - Extremities Exam Extremities Exam: Full ROM, Normal Capillary Refill, Normal Inspection. absent: Joint Swelling, Pedal Edema - Back Exam Back Exam: NORMAL INSPECTION - Neurological Exam Neurological Exam: Alert, Awake, CN II-XII Intact, Oriented x3 - Psychiatric Exam Psychiatric exam: Normal Affect, Normal Mood - Skin Skin Exam: Dry, Intact, Normal Color, Warm Assessment and Plan - Assessment and Plan (Free Text) Assessment: 72 y/o female with PMH of pancreatitis, HTN, HLD, CVA, gout, CKD, endometrial cancer s/o total hysterectomy with BSO admitted to [facility] for left sided abdominal pain, nausea, vomiting. She was found to have lipase of >[id number] Plan: -likely due to chronic alcoholic pancreatitis based on clinical symptoms+serology -now patient is hemodynamically stable, afebrile, in NAD, tolerating her clear liquid diet -lipase 10,186 on admission -MRCP: mild dialtion of pancreatic duct. no evidence of acute pancreatitis or biliary obstruction -AST/ALT/ALP wnl -advance diet to soft -continue pancreatic enzymes 10,000 U TID -conservative management IVF, pain control -continue PPI, zofran -outpatient EGD/EUS for further evaluation. Patient has her own gas engine repairer Case reviewed and plan discussed with attending Dr Muna Angel, DO <Giulia Toro V - Last Filed: 07/04/18 23:13> Objective - Vital Signs/Intake and Output Vital Signs (last 24 hours): Temp Pulse Resp BP Pulse Ox 98 F 65 18 163/88 H 98 07/04/18 16:36 07/04/18 16:36 07/04/18 16:36 07/04/18 16:36 07/04/18 16:36 - Labs Labs: 07/04/18 06:15 07/04/18 06:15 Attending/Attestation - Attestation I have personally seen and examined this patient.: Yes I have fully participated in the care of the patient.: Yes I have reviewed all pertinent clinical information, including history, physical exam and plan: Yes Notes (Text): This is an addendum to resident's progress report dictated..The patient was seen and examined earlier. Medical records, lab studies, imagings were reviewed. Last 24 hours events reviewed. Agreed with the above treatment plan as outlined in residents 's notes with the addition of the following 07/04/18 23:12
[2018-07-04 16:36] VITALS: BP 163/88; PULSE 65; RESP 18; TEMP 98; O2SAT 98
--- NOTE | 2018-07-04 18:57 | HP ---
DATE OF EXAM: 07/04/2018 HISTORY OF PRESENT ILLNESS: The patient is a 72-year-old, patient of Dr. Ireland covering for her, came to emergency room because of intermittent abdominal pain. She states it is going on for last 2 weeks, got worse last night, and it was 10 out of 10, so that prompted her to come to emergency room. Denies any nausea. Denies any chest pain. Did not lose weight. Had fair appetite. The patient states she has last colonoscopy done in 2013 and she was told that it is due in 2019. She is being followed by Dr. Velásquez as outpatient. PAST MEDICAL HISTORY: Significant for: 1. Endometrial cancer, for that she had total hysterectomy done along with appendectomy. 2. History of gastritis. 3. Hypertension. 4. Hyperuricemia. 5. Hyperlipidemia. 6. Anxiety disorder. ALLERGIES: SHE IS ALLERGIC TO IODINE AND SHELLFISH DERIVATIVE. MEDICATIONS AT HOME: She is on atenolol 50 mg daily, aspirin 81 daily, allopurinol 300 daily, Ultram 50 mg three times a day, amlodipine 10 mg daily, valsartan 160/25 daily, Protonix 40 daily, Lipitor 20 mg daily, and Xanax 0.5 twice a day. SOCIAL HISTORY: She denies smoking. She does drink here and there. PHYSICAL EXAMINATION: GENERAL: She is awake, alert, oriented, and communicative. VITAL SIGNS: She is afebrile, pulse 60, respirations 20, and blood pressure 177/86. LUNGS: Bilateral fair airflow. No rhonchi or crackle. HEART: S1 and S2 audible. ABDOMEN: Soft and nontender. No rebound. No guarding. NEUROLOGIC: The patient is awake, alert, oriented, and communicative. LABORATORY DATA: WBC is 9.5, hemoglobin 9.9, hematocrit 31.9, and platelet 221. Chemistry; sodium 137, potassium 4.5, chloride 108, CO2 of 24, BUN 35, creatinine and blood sugar of 80. Her lipase 10,186 and followup is 712. Abdominal ultrasound is not available. MRCP done and result is not available yet. ASSESSMENT: 1. Abdominal pain, etiology unclear. We will followup both abdominal sonogram and MRCP result. 2. Hypertension. 3. Hyperuricemia. 4. History of gastritis. 5. History of endometrial cancer, status post total hysterectomy and appendectomy. 6. Anxiety disorder. PLAN: The patient is currently on clear liquid, we will advance diet. The patient has been started on Pancrease. We will discuss with Dr. Toro and we will make further disposition plan according to the results when they are available. Korin Barkley MD
== END 2018-07-04 19:02 | disposition home or self-care (01) | DRG 440 ==
LOC: ED 01:17 → ERH 04:16 → 3RNO 05:00
PROVIDERS: ADMIT Internal Medicine; ATTEND Internal Medicine
DX: K85.20 Alcohol induced acute pancreatitis without necrosis or infection (principal); M10.9 Gout, unspecified; N18.3 Chronic kidney disease, stage 3 (moderate); G89.29 Other chronic pain; N28.1 Cyst of kidney, acquired; I12.9 Hypertensive chronic kidney disease with stage 1 through stage 4 chronic kidney disease, or unspecified chronic kidney disease; Z85.42 Personal history of malignant neoplasm of other parts of uterus; Z86.73 Personal history of transient ischemic attack (TIA), and cerebral infarction without residual deficits; B18.2 Chronic viral hepatitis C; E10.22 Type 1 diabetes mellitus with diabetic chronic kidney disease; E78.00 Pure hypercholesterolemia, unspecified; E78.5 Hyperlipidemia, unspecified; F41.9 Anxiety disorder, unspecified; K08.89 Other specified disorders of teeth and supporting structures; K21.9 Gastro-esophageal reflux disease without esophagitis; K76.0 Fatty (change of) liver, not elsewhere classified; R16.0 Hepatomegaly, not elsewhere classified; Z79.899 Other long term (current) drug therapy; Z80.0 Family history of malignant neoplasm of digestive organs; Z90.710 Acquired absence of both cervix and uterus; Z88.8 Allergy status to other drugs, medicaments and biological substances; Z91.013 Allergy to seafood; R40.2412 Glasgow coma scale score 13-15, at arrival to emergency department